=== PATIENT | male | born 1990 | race Caucasian/White ===

== ENCOUNTER 2019-04-19 17:32 | Emergency (ER) | payer BC, OTHER ==
[~2019-04-19] VITALS: Ht 182.9 cm; Wt 122.6 kg
[2019-04-19 17:59] VITALS: BP 142/103
[2019-04-19] MEDS ORDERED: HYDR-4353 PO (18:15)
[2019-04-19] MEDS ORDERED: HYDROcodone/acetaminophen 10/325mg tab PO ONE (18:15)
[2019-04-19] MEDS ORDERED: CYCL-1 PO (18:15)
[2019-04-19] MEDS ORDERED: NAPR-56 PO (18:15)
[2019-04-19] MEDS ORDERED: naproxen 500mg tablet PO ONE (18:15)
[2019-04-19] MEDS ORDERED: cyclobenzaprine 10mg tablet PO ONE (18:15)
== END 2019-04-19 18:46 | disposition home or self-care (01) ==
LOC: ER 17:33
DX: S52.124A Nondisplaced fracture of head of right radius, initial encounter for closed fracture (principal); S20.211A Contusion of right front wall of thorax, initial encounter; I10 Essential (primary) hypertension; Z79.899 Other long term (current) drug therapy; W11.XXXA Fall on and from ladder, initial encounter; Y93.89 Activity, other specified; Y92.89 Other specified places as the place of occurrence of the external cause; Y99.8 Other external cause status
CPT/HCPCS: 29105; 71046; 73080; 99284

== ENCOUNTER 2019-05-04 15:18 | Outpatient (CLI) | payer BC, OTHER ==
[~2019-05-04 15:18] MED LIST: CYCL-1 PO; NAPR-56 PO
== END 2019-05-04 15:46 | disposition home or self-care (01) ==
LOC: ORTHO 15:18
PROVIDERS: ATTEND Orthopaedic Surgery
DX: S52.121D Displaced fracture of head of right radius, subsequent encounter for closed fracture with routine healing (principal); I10 Essential (primary) hypertension; Z87.891 Personal history of nicotine dependence; X58.XXXD Exposure to other specified factors, subsequent encounter
CPT/HCPCS: 73080; G0463